=== PATIENT | female | born 1955 | race Caucasian/White ===

== ENCOUNTER → 2017-05-31 10:59 | Outpatient (CLI) | payer OTHER, SELFPAY ==
[2017-05-31 15:59] LABS: T4 Free Direct 1.04 ng/dL (0.76-1.46); Thyroid Stim Hormone (TSH) 4.83 uIU/mL (0.358-3.74)
== END ==
PROVIDERS: Family Provider Family Medicine; PCP Family Medicine; Visit Provider Family Medicine
DX: R53.83 Other fatigue (principal)
CPT/HCPCS: 36415; 84439; 84443

== ENCOUNTER → 2017-06-14 11:22 | Outpatient (CLI) | payer OTHER, SELFPAY ==
--- NOTE | 2017-06-14 11:24 | RAD_ITS ---
STUDY: X-RAY - LUMBOSACRAL SPINE REASON FOR EXAM: Female, 62 years old. Low back pain TECHNIQUE: 7 view(s) of the lumbosacral spine were obtained to include lateral flexion and extension views. COMPARISON: None FINDINGS: Normal lumbar lordosis. There is no substantial scoliosis. There is normal alignment of the vertebrae. There is multilevel endplate spondylosis of the lumbar vertebrae. There is multi-level degenerative disc disease with multi-level disc space narrowing. Normal bilateral sacral ala, sacroiliac joints, and visualized sacrum. Normal visualized soft tissue structures. RAD/L/S Spine Comp/w Bending Views IMPRESSION: Degenerative changes of the spine, as detailed above. No fracture. Electronically Signed: Mikey Godinez DO at 22:22 EDT , Service support ,
== END ==
PROVIDERS: Family Provider Family Medicine; PCP Family Medicine; Visit Provider Orthopaedic Surgery
DX: M54.9 Dorsalgia, unspecified (principal)
CPT/HCPCS: 72114

== ENCOUNTER → 2017-06-27 21:46 | Outpatient (CLI) | payer OTHER, SELFPAY | PROVIDERS: Family Provider Family Medicine; PCP Family Medicine; Visit Provider Family Medicine | DX: G47.10 Hypersomnia, unspecified (principal); R06.83 Snoring; I10 Essential (primary) hypertension; E66.01 Morbid (severe) obesity due to excess calories | CPT/HCPCS: 95810 ==

== ENCOUNTER → 2017-07-25 19:58 | Outpatient (CLI) | payer OTHER, SELFPAY | PROVIDERS: Family Provider Family Medicine; PCP Family Medicine; Visit Provider Family Medicine | DX: G47.33 Obstructive sleep apnea (adult) (pediatric) (principal); E66.01 Morbid (severe) obesity due to excess calories; I10 Essential (primary) hypertension; R06.83 Snoring | CPT/HCPCS: 95811 ==

== ENCOUNTER → 2017-09-14 09:46 | Outpatient (CLI) | payer OTHER, SELFPAY ==
--- NOTE | 2017-09-14 09:55 | RAD_ITS ---
STUDY: AIR-CONTRAST UPPER GI SERIES. REASON FOR EXAM: Female, 62 years old. Dysphagia. FLUOROSCOPY TIME (if supplied): (1:01) minutes/seconds TECHNIQUE: The patient ingested barium. Multiple images of the esophagus, stomach and duodenum were obtained. COMPARISON: None. FINDINGS: The seventh of a small sliding hiatal hernia with gastroesophageal reflux. The patient ingested a 12 mm tablet of barium. The tablet is prepped at the gastroesophageal junction. The remainder of the stomach and duodenum is unremarkable. IMPRESSION: Small sliding hiatal hernia with gastroesophageal reflux. The ingested 12 mm tablet of barium is trapped at the gastroesophageal junction. Electronically Signed: Vivek Cary MD at 8:01 EDT Tel [phone], Service support , STUDY: X-RAY - ESOPHAGUS (BARIUM SWALLOW) WITH FLUOROSCOPY REASON FOR EXAM: Female, 62 years old. Dysphasia. TECHNIQUE: 14 view(s) of the esophagus were obtained following swallowing of barium. FLUOROSCOPY TIME (if supplied): (0:33) minutes/seconds COMPARISON: None. FINDINGS: There is no demonstrated esophageal foreign body. There is no demonstrated stricture or mucosal abnormality. There is a small slight narrowing with gastric esophageal reflux. The patient ingested a 12 mm tablet of barium. The tablet is trapped at the gastroesophageal junction. There is atherosclerotic tortuosity of the aortic arch and descending thoracic aorta. Normal visualized pulmonary parenchyma. Normal visualized osseous structures of the thorax. RAD/Upper GI w/BA Swallow IMPRESSION: Small hiatal hernia with gastroesophageal reflux. The ingested 12 mm tablet of barium is trapped at the gastroesophageal junction. Electronically Signed: Vivek Cary MD at 8:03 EDT Tel [phone], Service support ,
== END ==
PROVIDERS: Family Provider Family Medicine; PCP Family Medicine; Visit Provider Family Medicine
DX: R13.10 Dysphagia, unspecified (principal)
CPT/HCPCS: 74246

== ENCOUNTER → 2017-10-17 16:39 | Outpatient (CLI) | payer OTHER, SELFPAY ==
--- NOTE | 2017-10-17 16:42 | MRI_ITS ---
STUDY: MRI LUMBAR SPINE WITHOUT CONTRAST REASON FOR EXAM: Female, 62 years old. Left leg radiculopathy. TECHNIQUE: Standardized fat and water weighted pulse sequences were obtained in the sagittal and axial planes. COMPARISON: None FINDINGS: T12-L1: Degenerative endplate changes. Narrowed disc space with minimal bulging disc osteophyte complex. Normal bilateral facet joints. Normal central canal and bilateral lateral recesses. Normal bilateral intervertebral neural foramina. Normal lumbar lordosis. There is severe dextro scoliosis. Normal conus medullaris that terminates at T12-L1 L1-2: Degenerative endplate changes. Narrowed disc space and minor endplate spurring. Desiccation of the disc and tiny left paracentral disc protrusion... Normal bilateral facet joints. Normal central canal and bilateral lateral recesses. Normal bilateral intervertebral neural foramina. L2-3: Normal endplates. Normal disc height, desiccation and minor annular bulge.. Normal bilateral facet joints. Normal central canal and bilateral lateral recesses. Normal bilateral intervertebral neural foramina. L3-4: Normal endplates. Normal disc height, desiccation and mild annular bulge with small right posterolateral/foraminal disc protrusion. Mild facet arthropathy.. Normal central canal. Moderate left lateral recess and neural foraminal encroachment with more severe narrowing on the right L4-5: Grade 1 spondylolisthesis. Normal endplates. Normal disc height, desiccation and minor bulging disc osteophyte complex. Bilateral facet arthropathy and thickening of ligamenta flava greater on the right. Normal central canal moderate left lateral recess and mild neuroforaminal encroachment. Severe right lateral recess and moderate neural foraminal stenosis L5-S1: Grade 1 spondylolisthesis Normal endplates. Normal disc height, desiccation and minor bulging disc osteophyte complex with tiny right paracentral disc protrusion. Bilateral facet arthropathy.. Normal central canal. Moderate bilateral recess and mild neural foraminal encroachment Normal visualized sacral ala. Normal visualized paraspinous soft tissue structures. MRI/Spine Lumbar (Routine) IMPRESSION: Severe scoliosis and degenerative changes. Multilevel spinal stenosis secondary to disc disease and bony hypertrophy. Findings as above Electronically Signed: Jeremi Hernandez MD at 21:17 EDT , Service support ,
== END ==
PROVIDERS: Family Provider Family Medicine; PCP Family Medicine; Visit Provider Orthopaedic Surgery
DX: M54.16 Radiculopathy, lumbar region (principal)
CPT/HCPCS: 72148

== ENCOUNTER → 2017-10-25 10:16 | Outpatient (CLI) | payer OTHER, SELFPAY ==
--- NOTE | 2017-10-25 10:17 | RAD_ITS ---
STUDY: X-RAY - PELVIS AND LEFT HIP REASON FOR EXAM: Chronic left hip pain. TECHNIQUE: Radiological exam, hip, unilateral, with pelvis when performed; 2 or 3 views. COMPARISON: None. FINDINGS: There is heterotopic ossification extending distally from the left iliac wing. There is vascular calcification. Normal bilateral iliac wings, sacroiliac joints and visualized sacrum. Normal bilateral superior and inferior pubic rami. There is a calcification in the pubic symphysis. Normal bilateral ischial tuberosities. Normal visualized left femoral head. Normal left acetabulum. There is mild left hip arthrosis with mild joint space narrowing at the superior medial aspect of the joint. RAD/HIP, UNI W/ Pelvis 2-3 Views IMPRESSION: Mild left hip arthrosis. Heterotopic ossification extending distally from the left iliac wing. Electronically Signed: Skyler Livingston MD at 10:16 EDT Tel , Service support ,
== END ==
PROVIDERS: Family Provider Family Medicine; PCP Family Medicine; Visit Provider Orthopaedic Surgery
DX: R52 Pain, unspecified (principal)
CPT/HCPCS: 73502

== ENCOUNTER → 2017-12-05 12:04 | Outpatient (CLI) | payer OTHER, SELFPAY ==
[2017-12-05 15:34] LABS: Absolute Lymphocyte Count 3.38 X10^3/ul (0.83-4.51); Absolute Neutrophil Count 4.4 X10^3/uL (2.0-7.7); Basophil# 0.04 X10^3/uL; Basophil% 0.5 % (0-1); Eosinophil# 0.12 X10^3/uL; Eosinophils% 1.4 % (0-5); Hematocrit 44.7 % (37-47); Lymphocyte # 3.38 X10^3/ul (4.0); Lymphocyte % 38.3 % (19-41); Mean Corp Hgb Conc 33.6 g/gl (32-36); Mean Corpuscular Hgb 28.7 pg (27.0-32.0); Mean Corpuscular Volume 85.5 fL (81-99); Mean Platelet Vol. 9.8 fl (6.2-12.0); Monocyte# 0.87 X10^3/uL; Monocyte% 9.9 % (0-10); Neutrophil # 4.38 X10^3/uL (2.7-7.7); Neutrophil % 49.6 % (47-70); Platelet Count 302 K/mm3 (150-450); RBC Distribution Width CV 14.9 % (11.6-14.6); RBC Distribution Width SD 46.7 fl (35.1-43.9); Red Blood Count 5.23 M/mm3 (4.2-5.4); White Blood Count 8.8 K/mm3 (4.4-11.0)
[2017-12-05 15:35] LABS: POSITIVE COUNT NO; POSITIVE DIFFERENTIAL NO; POSITIVE MORPHOLOGY NO
[2017-12-05 16:00] LABS: ALB/GLOB Ratio 0.9 RATIO (0.9-2.4); AST(SGOT) 24 U/L (15-37); Alanine Aminotransfer ALT/SGPT 51 U/L (13-56); Albumin, Serum 3.5 g/dL (3.2-5.0); Alkaline Phosphatase 53 U/L (45-117); Anion Gap 8 (5-15); BUN 16 mg/dL (7-18); BUN/Creat Ratio 15.7 RATIO (10-20); Calcium,Total 10.2 mg/dL (8.5-10.1); Chloride 105 mmol/L (98-107); Creatinine, Serum 1.02 mg/dL (0.55-1.02); EST Glomerular Filtration Rate 58 mL/min (>60); Est Glom Filt Rate - Afr Amer 70 mL/min (>60); Glucose 109 mg/dL (74-106); Potassium 4.2 mmol/L (3.5-5.1); Protein, Total 7.5 g/dL (6.4-8.2); Sodium Level 141 mmol/L (136-145); T4 Free Direct 0.95 ng/dL (0.76-1.46); Thyroid Stim Hormone (TSH) 2.08 uIU/mL (0.358-3.74)
[2017-12-05 16:02] LABS: Microalbumin,Random Urine 45.3 mg/L (NO RANGE EST.); Microalbumin:Creatinine Ratio 36.2 mg/g CRE (<30 mg/g CRE)
== END ==
PROVIDERS: Family Provider Family Medicine; PCP Family Medicine; Visit Provider Family Medicine
DX: E11.21 Type 2 diabetes mellitus with diabetic nephropathy (principal); I10 Essential (primary) hypertension; E66.01 Morbid (severe) obesity due to excess calories; E78.5 Hyperlipidemia, unspecified; R94.6 Abnormal results of thyroid function studies
CPT/HCPCS: 36415; 80053; 82043; 82570; 84439; 84443; 85025

== ENCOUNTER → 2017-12-14 10:30 | Outpatient (CLI) | payer OTHER, SELFPAY ==
--- NOTE | 2017-12-14 10:33 | EKG12_ITS ---
Test Reason : PREOP Blood Pressure : / mmHG Vent. Rate : 076 BPM Atrial Rate : 076 BPM P-R Int : 156 ms QRS Dur : 086 ms QT Int : 404 ms P-R-T Axes : 040 009 008 degrees QTc Int : 454 ms Normal sinus rhythm Normal ECG Confirmed by RAUL BACA, JEFFERSON ([id number]), videotape editor MORGAN JOHNSON ([id number]) on 12/16/2017 1:33:23 PM Referred By: Yessenia Gonzalez Confirmed By:JEFFERSON CARTER MD
== END ==
PROVIDERS: Family Provider Family Medicine; PCP Family Medicine; Referring Provider Urology; Visit Provider Urology
DX: Z01.810 Encounter for preprocedural cardiovascular examination (principal)
CPT/HCPCS: 93005

== ENCOUNTER 2017-12-27 10:03 | Observation (INO) | payer OTHER, SELFPAY ==
[2017-12-27] VITALS (12 sets, daily range): BP systolic 118–157; BP diastolic 66–93; PULSE 73–99; RESP 16–20; TEMP 36.4–37; O2SAT 89–99; BMI 38.7; BMI 38.6
[2017-12-27 06:41] LABS: Bedside Glucose 175 mg/dL (70-110)
[2017-12-27 07:02] LABS: Hemoglobin A1c 7.2 % (4.2-6.3)
[2017-12-27] MEDS: Cefazolin 2 GM in 0.9% Normal Saline 100 ML IV (08:14)
[2017-12-27] MEDS: Lubricating Jelly 60 GM Tube 30 GM TOPICAL (08:43)
[2017-12-27] MEDS: Methylene Blue 1% 100 MG/10 ML VIAL (09:21)
[2017-12-27] MEDS: Estrogens,Conj. 1 Tube 1 DOSE (09:34)
[2017-12-27 10:06] LABS: Bedside Glucose 149 mg/dL (70-110)
[2017-12-27] MEDS: Morphine 2 MG/ML Syringe IV ×2 (11:45→16:10)
[2017-12-27] MEDS: Dextrose 5%-Lactated Ringers 1,000 ML 100 ML IV ×2 (11:49→22:53)
[2017-12-27 12:26] LABS: Bedside Glucose 113 mg/dL (70-110)
--- NOTE | 2017-12-27 13:07 | PCM.IMDPSTOP ---
Immediate Post-Op Note Date of Procedure: 12/27/17 Primary Surgeon/Physician: Yessenia Gonzalez MD bank runner: Ventura Tse Pre-Operative Diagnosis: rectocele, postmenopausal vaginal atrophy Post-Operative Diagnosis: same Surgery/Procedure Performed:: rectocele repair, cystoscopy Description of Surgical Findings:: 2 layer primary repair without mesh. good apical support. Estimated Blood Loss: 50cc Specimen's removed: none - Admit VTE Documentation VTE Present on Admission: Yes VTE Mechan Device Prophylaxis: SCD's VTE Pharm Prophylaxis ordered?: No Reason prophylaxis not ordered:: Treatment Not Indicated
--- NOTE | 2017-12-27 13:10 | OP.PN_ITS ---
Immediate Post-Op Note Date of Procedure: 12/27/17 Primary Surgeon/Physician: Yessenia Gonzalez MD property maintenance supervisor: Ventura Tse Pre-Operative Diagnosis: rectocele, postmenopausal vaginal atrophy Post-Operative Diagnosis: same Surgery/Procedure Performed:: rectocele repair, cystoscopy Description of Surgical Findings:: 2 layer primary repair without mesh. good apical support. Estimated Blood Loss: 50cc Specimen's removed: none - Admit VTE Documentation VTE Present on Admission: Yes VTE Mechan Device Prophylaxis: SCD's VTE Pharm Prophylaxis ordered?: No Reason prophylaxis not ordered:: Treatment Not Indicated
[2017-12-27] MEDS: Estradiol 1 MG Tablet PO (13:56)
[2017-12-27] MEDS: HYDROcodone Bitartrate/Apap 5/325 Tablet PO ×2 (13:56→21:14)
[2017-12-27] MEDS: Losartan Potassium 25 MG Tablet PO (13:57)
[2017-12-27] MEDS: Meloxicam 15 MG Tablet PO (13:57)
[2017-12-27] MEDS: metFORMIN HCl 1,000 MG Tablet 1000 MG PO (13:58)
[2017-12-27] MEDS: Gabapentin 100 MG Capsule PO ×2 (13:58→18:09)
[2017-12-27] MEDS: Metoprolol Tartrate 100 MG Tablet PO (13:58)
[2017-12-27] MEDS: HYDROCHLOROTHIAZIDE 12.5 MG CAPSULE PO (13:58)
[2017-12-27] MEDS: amLODIPine 10 MG Tablet PO (13:59)
[2017-12-27] MEDS: Pantoprazole Sodium 20 MG Tablet PO (13:59)
[2017-12-27] MEDS: Cefazolin 1 GM/50 ML BAG IV ×2 (15:55→23:36)
[2017-12-27] MEDS: Docusate Sodium 100 MG Capsule PO (21:10)
[2017-12-27] MEDS: Atorvastatin Calcium 20 MG Tablet PO (21:10)
[2017-12-28 03:00] VITALS: BP 133/63; PULSE 76; RESP 18; TEMP 36.6; O2SAT 93
[2017-12-28] MEDS: HYDROcodone Bitartrate/Apap 5/325 Tablet PO (06:24)
--- NOTE | 2017-12-28 07:37 | PCM.PN.GU ---
Physical Exam Subjective: Doing well this morning. Little sore, hasn't walked much but did get out of bed. Ate dinner last night without problem. Per nursing, the norco controlled her pain. - Physical Exam Vital Signs Temp 97.9 F 12/28/17 03:00 Pulse 76 12/28/17 03:00 Resp 18 12/28/17 03:00 BP 133/63 H 12/28/17 03:00 Pulse Ox 93 12/28/17 03:00 Intake & Output 12/26/17 12/27/17 12/28/17 23:59 23:59 23:59 Intake Total 3121 / 3121 1034 / 1034 Output Total 885 / 885 250 / 250 Balance 2236 / 2236 784 / 784 Weight: 98.883 kg Intake: Oral 800 / 800 400 / 400 IV fluid/meds 2321 / 2321 634 / 634 IV #2 1200 / 1200 Output: Urine 885 / 885 250 / 250 General: Alert, Oriented x3, Cooperative, No apparent distress HEENT: Atraumatic, Normocephalic Oral: Dry Mucosa Lungs: Normal air movement, - - still on the O2, used CPAP last night. Abdomen: Soft Extremities: - - SCD's in place bilaterally Skin: No rashes Comment: vaginal packing and catheter removed without an issue. Medical Necessity - Tobacco Use Smoking Status: Never smoker Assessment/Plan All Active Problems (Last Reviewed 06/07/17 @ 10:37 by Farida Cordova) ASCUS with positive high risk HPV (Acute) POD#1 rectocele repair, cystoscopy ambulate tolerating PO home today once off O2.
--- NOTE | 2017-12-28 07:43 | DCINST_ITS ---
Discharge Diet: No Restrictions Discharge Activity: May Not Drive, May Shower, - - no driving for 2 weeks no lifting over 5 pounds no pushing or pulling no vacuuming no sexual activity No tub bathing or swimming, ok to shower Lifting Restrictions: 5 pounds Call your doctor if your incision/area has: Sudden Increased Bleeding Call your doctor if you observe: Fever of 101 or Higher, Inability to urinate, Inability to have a bowel movement, Using more than one pad per hour, Shortness of breath, Chest pain, Calf discomfort, Uncontrolled pain Additional Instructions: take colace over the counter twice a day, the generic is ok (docusate sodium). if not enough, add miralax too, follow instructions on bottle. Allergies/Adverse Reactions: Allergies lisinopril Allergy (Mild, Verified 12/20/17 13:07) Unknown Medications to take at Discharge Glimepiride [Amaryl] 4 mg PO DAILY 07/21/15 Hydrochlorothiazide 12.5 mg PO DAILY 07/21/15 Metformin HCl [Glucophage] 1,000 mg PO BIDCM 07/21/15 Metoprolol Tartrate [Lopressor (Beta Odilia)] 100 mg PO DAILY 07/21/15 Simvastatin [Zocor] 40 mg PO QHS 07/21/15 gabapentin 100 mg capsule 100 mg PO TID cap 03/02/17 cyclobenzaprine 10 mg tablet 10 mg PO Q8H 06/01/17 estradiol 1 mg tablet 1 mg PO QDAY 06/01/17 losartan 25 mg tablet 25 mg PO QDAY 06/01/17 meloxicam 15 mg tablet 15 mg PO QDAY 06/01/17 Amlodipine [Norvasc] 10 mg PO DAILY 12/20/17 Mirabegron [Myrbetriq] 25 mg PO DAILY 12/20/17 Nitrofurantoin Macrocrystals [Macrobid] 100 mg PO DAILY 12/20/17 Omeprazole [Prilosec] 20 mg PO DAILY 12/20/17 Trospium Chloride [Sanctura Xr] 60 mg PO QAM 12/20/17 Primary Care Physician: Junior Eaton DO [Primary Care Provider] - Test Results: Test results from this visit will be discussed in further detail at your follow- up appointment, if applicable. Please Follow Up With: Ysesenia Gonzalez MD When: 2 weeks
[2017-12-28 07:45] VITALS: BP 109/65; PULSE 74; RESP 14; TEMP 36.9; O2SAT 92
[2017-12-28] MEDS: Meloxicam 15 MG Tablet PO (10:07)
[2017-12-28] MEDS: Mirabegron 25 MG TAB.ER.24H PO (10:07)
[2017-12-28] MEDS: Pantoprazole Sodium 20 MG Tablet PO (10:07)
[2017-12-28] MEDS: amLODIPine 10 MG Tablet PO (10:07)
[2017-12-28] MEDS: Gabapentin 100 MG Capsule PO ×3 (10:07→17:36)
[2017-12-28] MEDS: Glimepiride 4 MG Tablet PO (10:07)
[2017-12-28] MEDS: Docusate Sodium 100 MG Capsule PO (10:07)
[2017-12-28 10:08] VITALS: PULSE 69
[2017-12-28] MEDS: HYDROCHLOROTHIAZIDE 12.5 MG CAPSULE PO (10:08)
[2017-12-28] MEDS: Estradiol 1 MG Tablet PO (10:08)
[2017-12-28] MEDS: metFORMIN HCl 1,000 MG Tablet 1000 MG PO ×2 (10:08→17:37)
[2017-12-28] MEDS: Losartan Potassium 25 MG Tablet PO (10:08)
[2017-12-28] MEDS: Metoprolol Tartrate 100 MG Tablet PO (10:08)
--- NOTE | 2017-12-28 10:30 | PCA ---
PT WALKED FROM HER ROOM 213 TO ROOM 211 AND BACK. PT HELD ONTO RAILING THE WHOLE WAY
[2017-12-28 13:00] VITALS: BP 152/72; PULSE 73; RESP 16; TEMP 37; O2SAT 93
[2017-12-28 17:20] VITALS: BP 137/72; PULSE 87; RESP 14; TEMP 36.6; O2SAT 92
--- NOTE | 2017-12-29 18:02 | PCM.OPRPT ---
Problem List (1) Rectocele Status: Acute (2) Post-menopause atrophic vaginitis Status: Acute Report of Operation Date of Procedure: 12/27/17 Pre-Operative Diagnosis: rectocele, postmenopausal vaginal atrophy Post-Operative Diagnosis: same Surgery/Procedure Performed:: rectocele repair, cystoscopy Description of Surgical Findings:: 2 layer primary repair without mesh. good apical support. polo coach: Ventura Tse Specimen's removed: none Estimated Blood Loss (mL): 50cc Description of Procedure: Patient is a 62-year-old female sent to mo for evaluation and treatment of a rectocele and splinting in order to have bowel movements. She subsequently underwent urodynamics and cystoscopy in the office prior to being consented for surgical intervention. All risks benefits and alternatives were discussed including the risk of anesthesia, infection, bleeding, injury and pain. She understood and agreed to proceed. The patient was taken to the operating room and placed on the operating room table. Anesthesia monitored the head neck area IV access and vital signs throughout the case. Once anesthesia was appropriately administered the patient was placed into the exaggerated dorsal lithotomy position was prepped and draped in usual sterile fashion. At this time a Mary catheter was inserted into the urethra and the urinary bladder was drained. The posterior vaginal wall was identified and submucosally injection with 1% lidocaine with epinephrine was undertaken. An incision was made in the vaginal mucosa and dissection in full-thickness fashion was then undertaken until the entire defect of the rectocele was delineated. At this time, the decision was made to continue the repair without insertion of mesh as the vault defect was not significant. The rectocele was closed with 2-0 Vicryl in a 2 layer closure bringing the rectovaginal fascia together. At this time the vaginal mucosa was closed over the repair with running interlocking 2-0 Vicryl suture. The patient had been given methylene blue, and a cystoscopy was then performed revealing bilateral ureteral jets. The Mary catheter was reinserted. The vagina was packed with estrogen cream and vaginal packing. The patient was awakened and taken to the recovery room in good condition. There were no complications during this procedure. - Complications none - Admit VTE Documentation VTE Present on Admission: Yes VTE Mechan Device Prophylaxis: SCD's VTE Pharm Prophylaxis ordered?: No Reason prophylaxis not ordered:: Treatment Not Indicated
--- NOTE | 2017-12-29 18:06 | OP.PCM_ITS ---
Problem List (1) Rectocele Status: Acute (2) Post-menopause atrophic vaginitis Status: Acute Report of Operation Date of Procedure: 12/27/17 Pre-Operative Diagnosis: rectocele, postmenopausal vaginal atrophy Post-Operative Diagnosis: same Surgery/Procedure Performed:: rectocele repair, cystoscopy Description of Surgical Findings:: 2 layer primary repair without mesh. good apical support. medical administrative specialist: Ventura Tse Specimen's removed: none Estimated Blood Loss (mL): 50cc Description of Procedure: Patient is a 62-year-old female sent to tx for evaluation and treatment of a rectocele and splinting in order to have bowel movements. She subsequently underwent urodynamics and cystoscopy in the office prior to being consented for surgical intervention. All risks benefits and alternatives were discussed including the risk of anesthesia, infection, bleeding, injury and pain. She understood and agreed to proceed. The patient was taken to the operating room and placed on the operating room table. Anesthesia monitored the head neck area IV access and vital signs throughout the case. Once anesthesia was appropriately administered the patient was placed into the exaggerated dorsal lithotomy position was prepped and draped in usual sterile fashion. At this time a Mary catheter was inserted into the urethra and the urinary bladder was drained. The posterior vaginal wall was identified and submucosally injection with 1% lidocaine with epinephrine was undertaken. An incision was made in the vaginal mucosa and dissection in full- thickness fashion was then undertaken until the entire defect of the rectocele was delineated. At this time, the decision was made to continue the repair without insertion of mesh as the vault defect was not significant. The rectocele was closed with 2-0 Vicryl in a 2 layer closure bringing the rectovaginal fascia together. At this time the vaginal mucosa was closed over the repair with running interlocking 2-0 Vicryl suture. The patient had been given methylene blue, and a cystoscopy was then performed revealing bilateral ureteral jets. The Mary catheter was reinserted. The vagina was packed with estrogen cream and vaginal packing. The patient was awakened and taken to the recovery room in good condition. There were no complications during this procedure. - Complications none - Admit VTE Documentation VTE Present on Admission: Yes VTE Mechan Device Prophylaxis: SCD's VTE Pharm Prophylaxis ordered?: No Reason prophylaxis not ordered:: Treatment Not Indicated
== END 2017-12-28 18:54 | disposition home or self-care (01) ==
LOC: MS2 12-28 06:55
PROVIDERS: Anesthesiology; Admitting Provider Urology; Family Provider Family Medicine; PCP Family Medicine; Referring Provider Urology; Visit Provider Urology
PROC: (CPT 57260; principal; 2017-12-27 07:15)
DX: N81.6 Rectocele (principal); E11.9 Type 2 diabetes mellitus without complications; N95.2 Postmenopausal atrophic vaginitis; G47.30 Sleep apnea, unspecified; Z79.899 Other long term (current) drug therapy; Z79.84 Long term (current) use of oral hypoglycemic drugs; G89.29 Other chronic pain; M54.5 Low back pain; I10 Essential (primary) hypertension; N39.41 Urge incontinence
CPT/HCPCS: 57250; 36415; 82962; 83036; 96361; 96365; 96366; 96375; 96376; 99218; J7120; G0378; G0379; J2405

== ENCOUNTER → 2018-05-08 10:15 | Outpatient (CLI) | payer OTHER, SELFPAY ==
--- NOTE | 2018-05-08 10:18 | MRI_ITS ---
STUDY: MRI LEFT HIP REASON FOR EXAM: Left hip pain, especially with walking. TECHNIQUE: Standardized fat and water weighted pulse sequences were obtained in all 3 orthogonal planes. COMPARISON: Radiographs 10/25/2017. FINDINGS: There is mild chondral thinning of the left hip (T2 sagittal image 11). There is focal synovitis at the posterior aspect of the left hip measuring approximately 3.2 cm in length (proton-density sagittal images 11-14; T2 sagittal images 8-12) with bone edema of the adjacent posterior acetabulum (inversion recovery axial images 21, 22) without demonstrated osseous erosion. There is a small tear of the left superior labrum (inversion recovery coronal image 17). Normal femoral head. Normal femoral neck and intratrochanteric region. Normal gluteus minimus, medius and iliopsoas tendons and distal insertions. There is no trochanteric, iliopsoas or iliopectineal bursitis. Normal superior and inferior pubic rami. Normal pubic symphysis. Normal ischial tuberosity. Normal origin of the hamstring tendons. Normal visualized iliac wing, sacroiliac joint, and sacral ala. There is no enlargement or edema of the left piriformis muscle (inversion recovery coronal images 8, 9). MRI/Lower Ext Joint Only (Routine) IMPRESSION: Focal synovitis at the posterior aspect of the left hip suggestive of inflammatory arthritis, with bone edema of the adjacent posterior acetabulum. Mild left hip arthrosis. Small tear of the left superior labrum. No demonstrated enlargement or edema of the left piriformis muscle. Electronically Signed: Skyler Livingston MD at 10:50 EST Tel , Service support ,
== END ==
PROVIDERS: Family Provider Family Medicine; PCP Family Medicine; Referring Provider Physician Assistant; Visit Provider Physician Assistant
DX: M25.552 Pain in left hip (principal); G57.02 Lesion of sciatic nerve, left lower limb
CPT/HCPCS: 73721

== ENCOUNTER → 2018-08-28 10:21 | Outpatient (CLI) | payer OTHER, SELFPAY ==
[2018-08-28 10:25] LABS: Mucous, Urine 0 SEEN /hpf (<or=2+)
[2018-08-28 13:02] LABS: Microalbumin,Random Urine 50.1 mg/L (NO RANGE EST.); Microalbumin:Creatinine Ratio 28.5 mg/g CRE (<30 mg/g CRE)
[2018-08-28 13:03] LABS: Color, Urine Yellow (Yellow); Glucose, Dipstick Normal (Normal); Ketone-Dipstick Negative (Negative); Leukocyte Esterase-Dipstick 500 /ul (Negative); Nitrite-Dipstick Negative (Negative); Occult Blood-Urine 10 /ul (Negative); Protein-Dipstick 15 mg/dl (Negative); Specific Gravity, Urine 1.025 (1.002-1.030); Urine Bilirubin Dipstick Negative (Negative); Urine Clarity Cloudy (Clear); Urine Urobilinogen Normal (Normal)
[2018-08-28 13:12] LABS: AST(SGOT) 20 U/L (15-37); Alanine Aminotransfer ALT/SGPT 40 U/L (13-56); Albumin, Serum 3.9 g/dL (3.2-5.0); Alkaline Phosphatase 59 U/L (45-117); Anion Gap 8 (5-15); BUN 18 mg/dL (7-18); BUN/Creat Ratio 18.1 RATIO (10-20); Calcium,Total 9.2 mg/dL (8.5-10.1); Chloride 107 mmol/L (98-107); Cholesterol 129 mg/dL (200); EST Glomerular Filtration Rate 60 mL/min (>60); Est Glom Filt Rate - Afr Amer 72 mL/min (>60); Globulin 3.9 g/dL (2.2-4.2); Glucose 102 mg/dL (74-106); High Density Lipoprotein 31 mg/dL; Protein, Total 7.8 g/dL (6.4-8.2); Sodium Level 141 mmol/L (136-145); Triglycerides 176 mg/dL; Very Low Density Lipoprotein 35 mg/dL (5-40)
[2018-08-28 13:15] LABS: Red Blood Cells-Urine 0-5 SEEN /hpf (0-5); White Blood Cells 10-25 SEEN /hpf (0-5)
[2018-08-28 13:16] LABS: Bacteria 1+ /hpf (None Seen); Squamous Epithelial Cells - UA 0-5 SEEN /hpf (5-10)
== END ==
PROVIDERS: Family Provider Family Medicine; PCP Family Medicine; Visit Provider Family Medicine
DX: E11.21 Type 2 diabetes mellitus with diabetic nephropathy (principal); E78.5 Hyperlipidemia, unspecified; R94.6 Abnormal results of thyroid function studies; N39.41 Urge incontinence; R30.9 Painful micturition, unspecified; N30.90 Cystitis, unspecified without hematuria
CPT/HCPCS: 36415; 80053; 80061; 81001; 82043; 82570; 84443; 87086; 87088

== ENCOUNTER → 2019-04-04 11:50 | Outpatient (CLI) | payer OTHER, SELFPAY ==
[2017-12-27 11:36] VITALS: BMI 38.6
[2019-04-04 16:22] LABS: LDH 185 U/L (84-246)
[2019-04-06 09:35] LABS: HCG BETA-SUBUNIT QUANT. 4 mIU/mL (.)
[2019-04-10 16:41] LABS: AFP, Tumor Marker 3.7 ng/mL (0.0-8.3); Acetylcholine Receptor Binding < 0.03 nmol/L (0.00-0.24)
== END ==
PROVIDERS: Family Provider Family Medicine; PCP Family Medicine; Visit Provider Family Medicine
DX: J98.59 Other diseases of mediastinum, not elsewhere classified (principal)
CPT/HCPCS: 36415; 82105; 83615; 84238; 84702

== ENCOUNTER → 2019-04-16 11:14 | Outpatient (CLI) | payer OTHER, SELFPAY ==
--- NOTE | 2019-04-16 12:00 | PET_ITS ---
EXAMINATION: FDG PET CT INDICATIONS: A 64-year-old female with history of mediastinal mass formation. COMPARISON EXAMINATION: None available. TECHNIQUE: Following the intravenous administration of 17.07 mCi of F-18 deoxyglucose via the right antecubital fossa, multiplanar image acquisitions of the head, neck, chest, abdomen and pelvis to level of mid thigh, obtained at one hour post radiopharmaceutical administration contemporaneously interpreted with the current CT of the head, neck, chest, abdomen and pelvis to level of mid thigh, dated 04/16/19 via coregistration reveal: SERUM GLUCOSE LEVEL: 178 mg/dl. HEIGHT: 63 inches. WEIGHT: 217 lbs. FINDINGS: 1. There is no quantitative scintigraphic evidence of abnormal increased glucose metabolism on meticulous inspection of whole body acquisitions to include all three axis reconstructions. 2. Normal physiologic distribution of the radiopharmaceutical is apparent in the hepatic and splenic parenchyma, both renal units, bladder and visualized intestinal tract. There is uniform distribution of the radiopharmaceutical concentration defined in the visualized cerebellar hemispheres and cerebral cortical structures.? Diffuse intestinal tract activity is noted throughout all four quadrants of the abdominal-pelvic retroperitoneum, mesentery consistent with normal physiologic distribution of the radiopharmaceutical extending to the level of the rectum-rectal vault. Pertinent CT findings are as follows. CHEST: Middle and anterior mediastinal soft tissue densities demonstrate no evidence of facilitated FDG uptake. Right-left axillary soft tissue with fatty hilus is ametabolic. There are no parenchymal densities-nodules defined in the right and left hemithorax demonstrating discernible, quantitatively significant increased glucose metabolism. Atherosclerotic calcification is defined in the thoracic aorta without evidence of dilatation, aneurysm formation. Coronary arterial calcification is observed. ABDOMEN AND PELVIS: There is fatty metamorphosis involving the hepatic parenchyma. Atherosclerotic calcification is defined in the abdominal aorta without evidence of dilatation, aneurysm formation. Pelvic arterial calcification is observed. The uterus appears surgically absent. Bilateral inguinal soft tissue with fatty hilus is non-glucose avid. SKELETAL: Degenerative changes defined in the cervical, thoracic and lumbar spine demonstrate no evidence for glucose hypermetabolism. PET/PET/CT Tumor Base -Thigh Init IMPRESSION: 1. NEGATIVE EXAMINATION. There is no definitive quantitative scintigraphic evidence of viable neoplasm. 2. Meticulous attention paid to the mediastinum demonstrates no evidence of quantitatively significant enhanced FDG distribution on the present evaluation. Electronic Signature Marcos Hay D.O. Electronically Signed: Marcos Hay DO at 23:21 EST Tel , Service support ,
== END ==
PROVIDERS: PCP Family Medicine; Referring Provider Family Medicine; Visit Provider Family Medicine
DX: J98.59 Other diseases of mediastinum, not elsewhere classified (principal); D48.7 Neoplasm of uncertain behavior of other specified sites
CPT/HCPCS: 78815; A9552

== ENCOUNTER 2020-09-24 06:49 | Day surgery (SDC) | payer MEDICARE, BC, SELFPAY ==
--- NOTE | 2020-09-23 15:57 | PCM.HP.BLA ---
History and Physical Date of Admission: 09/24/20 Fifi Wang 1955 ? REFERRING PHYSICIAN: Junior Eaton, DO CHIEF COMPLAINT: Consult (Colonoscopy) ? HPI: The patient is a 65 year old female presents for consideration of colonoscopy for history of colon polyps. She had colonoscopy with me in 2015 with findings of serrated adenoma (mixed tubular adenoma and hyperplastic polyp), 1 cm, on 07/21/2015. She complains of lower abdominal pain, has chronic UTIs followed by Dr. Gonzalez for this She has sleep apnea and uses CPAP She denies constipation She also notes fecal urgency, usually in the morning with about 4 bowel movements then is OK for rest of day. She also notes abdominal bloating She denies blood in stools ? PAST MEDICAL HISTORY ? Abdominal pain, left lower quadrant 08/18/2010 ? Arthritis ? ? Diabetic ? ? Hx of colonoscopy 07/21/2015 ? Hyperlipidemia ? ? Hypertension ? ? Urinary tract infection ? PAST SURGICAL HISTORY ? COLONOSCOP W/ OR W/O BRSH SPEC ? 02/14/07 ? no polyps ? COLONOSCOP W/ OR W/O BRS SPEC ? 10/16/2010 ? Colonoscopy, repeat 5 yrs ? OTHER ? ? ? RSO & appy - benign path ? TOTAL ABDOM HYSTERECTOMY ? 1984 ? Hysterectomy, ANGUS ovaries gone ? TOTAL KNEE REPLACEMENT ? 2003 ? Knee replacement, total(right) - Dr. Waterman rectocoele repair Left hip surgery ? Current Outpatient Medications ? estrogens, conjugated (PREMARIN VAGINAL) Use vaginally. ? vibegron (GEMTESA) 75 mg tablet Take 75 mg by mouth once daily. ? amLODIPine (NORVASC) 10 mg tablet Take 10 mg by mouth once daily. ? losartan (COZAAR) 25 mg tablet Take 25 mg by mouth once daily. ? simvastatin (ZOCOR) 40 mg tablet Take 40 mg by mouth once daily. ? NOVOLIN N NPH U-100 INSULIN 100 unit/mL injection INJECT 10 UNITS SUBCUTANEOUSLY ONCE DAILY BEFORE FIRST MEAL ? metoprolol tartrate, short acting, (LOPRESSOR) 100 mg tablet Take 1 tablet by mouth once daily. ? metFORMIN (GLUCOPHAGE) 500 mg tablet Take 2 tablets by mouth twice daily. ? Hydrochlorothiazide 12.5 mg capsule Take 1 capsule by mouth once daily. ? glimepiride (AMARYL) 2 mg tablet Take 1 tablet by mouth daily with breakfast. (Patient taking differently: Take 2 mg by mouth daily with breakfast. 2 Tablets, Once a Day ? blood sugar diagnostic (SentreHEARTTOUCH ULTRA TEST) test strip Test blood sugar(s) 1-2 times daily. Dx: 250.02. Insulin: No ? Lancets (ONE TOUCH DELICA) lancets Test blood sugar(s) once daily. Dx: 250.02. Insulin: No ? COMPOUNDED PRESCRIPTION Hgb A1c ? CALCIUM CARBONATE/VITAMIN D3 (CALCIUM WITH VITAMIN D ORAL) Take by mouth. ? peg 3350-electrolytes (COLYTE) 240-22.72-6.72 -5.84 gram solution Take 4,000 mL by mouth one time only for 1 dose. ? pantoprazole DR (PROTONIX) 40 mg tablet TAKE 1 TABLET BY MOUTH 30 MINUTES BEFORE BREAKFAST (Patient not taking: Reported on 08/04/2020) ? atorvastatin (LIPITOR) 40 mg tablet Take 1 tablet by mouth once daily. (Patient not taking: Reported on 08/04/2020 ) ? lisinopril (PRINIVIL) 40 mg tablet Take 1 tablet by mouth twice daily. (Patient not taking: Reported on 08/04/2020 ) ? omega-3 fatty acids (FISH OIL CONCENTRATE) 1,000 mg cap Take 2 capsules by mouth once daily. (Patient not taking: Reported on 08/04/2020 ? gabapentin (NEURONTIN) 100 mg capsule Take 100 mg by mouth three times daily. (Patient not taking: Reported on 08/04/2020) ? pioglitazone (ACTOS) 30 mg tablet Take 1 tablet by mouth once daily. (Patient not taking: Reported on 08/04/2020 ? COMPOUNDED PRESCRIPTION Esophagram- DX: dysphagia, 782.20, Fax results to Lou Johnson [phone] ? meloxicam (MOBIC) 15 mg tablet Take 1 tablet by mouth once daily. Take with food. (Patient not taking: Reported on 08/04/2020 ? Trospium 60 mg cp24 Take 1 capsule by mouth once daily. (Patient not taking: Reported on 08/04/2020 ? ALLERGIES: Lisinopril ? PERSONAL HISTORY: ? Smoking status: Never Smoker ? Smokeless tobacco: Never Usedubstance Use Topics ? Alcohol use: No ? Drug use: No FAMILY HISTORY ? Diabetes Mother ? ? other (Other) Mother ? Tumor on brain stem ? Hypertension Father ? ? Diabetes Father ? ? Cataract Father ? ? Asthma Father ? ? dx in his 50's. 80 years old in 2010. ? Glaucoma Maternal Grandmother ? ? Asthma Sister ? ? other (Tumors) Sister ? ? unsure what it is ? REVIEW OF SYSTEMS: General: The patient NOTES fatigue, denies weight loss, NOTES weight gain, denies feeling hot, and denies feelings of cold. Eyes: The patient denies glaucoma, denies eye injury/surgery, wears glasses or contacts. Ear/Nose/Throat: The patient denies allergies, denies hayfever, denies ear infections, and denies bloody noses. Cardiovascular: The patient denies chest pain, denies heart disease, NOTES high blood pressure,denies cardiac stent, denies prior heart attack, denies irregular heart beat, NOTES high cholesterol, denies poor circulation, denies heart failure, other cardiac issues, denies claudication, denies cold feet, denies peripheral arterial stent. Respiratory: The patient denies tuberculosis, denies pneumonia, denies frequent cough, denies pulmonary embolism, denies shortness of breath, and denies coughing up blood. Gastrointestinal: The patient denies difficulty swallowing, denies acid reflux, denies ulcers, denies vomiting, denies jaundice/hepatitis, denies gallbladder problems, denies black or tarry stools, denies hemorrhoids, denies bleeding from rectum, denies diverticulitis, denies constipation, denies diarrhea, denies loss of stool control, and denies hernias. Kidney/Bladder: The patient denies kidney stones, NOTES urine infections, and denies bloody urine. Skin: The patient denies a history of skin cancer, denies bleeding/changing moles, and denies a history of skin rash. Neurologic: The patient denies a history of epilepsy/convulsions, denies headaches, denies head/spinal injuries, and denies stroke/TIA. Psychiatric: The patient denies psychiatric medications, denies depression, and denies voices, denies substance abuse. Endocrine: The patient denies thyroid disorders, NOTES diabetes, and denies hormonal problems. Hematologic: The patient denies a history of bruising, denies bleeding, and denies anemia, denies blood clots. Infections: The patient denies a history of measles and mumps, denies rheumatic fever, and denies sexually transmitted diseases. Musculoskeletal: The patient denies back pain/injury, denies back problems, denies sciatica, denies knee/foot trouble, NOTES arthritis, or denies gout. When was patient's last Mammogram screening? Unknown Last Colonoscopy: 2015 Sheila Schroeder LPN ?? PHYSICAL EXAMINATION: General: The patient is 65 year old female, well nourished, well hydrated in no acute distress. The patient is oriented to time, place, and person. VITALS: Blood pressure 156/82, pulse 103, temperature 36.6 ?C (97.9 ?F), height 152.4 cm (5'), weight 101.6 kg (224 lb), SpO2 94 %. Body mass index is 43.75 kg/m?. Head ? Normocephalic. EOM intact with sclera clear and no icterus noted. Neck - supple with no jugular venous distention noted. Trachea is midline. Lungs ? clear to auscultation. Normal breath sounds. No rales/rhonchi/wheezing noted. No labored breathing noted, such as retractions. No cough heard. Heart ? normal S1 and S2 auscultated. No rubs/clicks/murmurs noted. Regular rate. Abdomen ? soft and benign. Normal bowel sounds. . Difficult to determine if any masses or organomegaly due to body habitus. Extremities ? no pitting edema noted. Skin ? normal skin integrity. Neurological ? walks with assistance of cane, no focal deficits noted. Psych ? calm and appropriate ? IMPRESSION: history of colon polyps ? PLAN: I have discussed the above with the patient. I have offered colonoscopy, possible biopsies I have explained the procedure to the patient. I have counseled the patient as to the risks of the procedure, including but not limited to: infection, bleeding, injury to any intrabdominal organs such as liver/spleen, perforation of the GI tract, inability to complete the procedure, complications of anesthesia, etc. ? the patient understands. ? The patient was offered a surgery/procedure. The provider and patient have discussed in detail the risk of exposure to and/or potential harm posed by the COVID-19 virus with having a surgery/procedure at this time versus the risk of? delaying the surgery/procedure. It is not possible to know either the risk of delaying the surgery or procedure or chance of getting an infection with perfect accuracy, but a joint decision was made between the patient and the provider ?to proceed at this time with the scheduled surgery/procedure. I have answered all questions to the patient?s satisfaction and the patient has no further questions. ? Diagnoses: (Z86.010) History of colonic polyps (primary encounter diagnosis) Return to Clinic: The patient is instructed to follow-up with me as above. ? ? ? Maame Craven MD
--- NOTE | 2020-09-24 | COLBX_PTH ---
PATIENT: GEOFF FELIPE LOC: EN U#:[id number] AGE/SX: 65/F ROOM: RE09/24/[address]: Dr. Maame Craven MD : 1955 BED: DIS: 09/24/2020 SPEC #: [id number] RECD: 09/24/20 10:25 STATUS: CULLEN REGALADO #: [id number] RUDY: 09/24/20 00:[address]: Maame Craven DEPT: SURGICAL PATHOLOGY RECD BY: Vinh Baker ENTERED: 09/24/20 10:25 SP TYPE: COLON BX OTHR DR: Dr. Jeremi Garrison MD Tissues: Cecum, NOS Procedures: Surgery Specimen Level IV HEADER OPERATION: Colonoscopy (MAC) PRE-OP DIAGNOSIS: History colon polyps TISSUE SUBMITTED: Cecum polyp x2 by hot snare and biopsy MICROSCOPIC DIAGNOSIS Cecal polyps, biopsy: Tubular adenoma. Fragments of hyperplastic polyp. AM:annetta 09/25/2020 MICROSCOPIC DESCRIPTION Slides are reviewed. GROSS DESCRIPTION Received in fixative is one container labeled with the patient's name and designated cecal polyp. The specimen consists of multiple irregular fragments of light kimbrough soft tissue that in aggregate measure 2.5 x 0.6 x 0.1 cm. The specimen is totally submitted in one cassette. / AM:annetta 09/24/20 TC:5 CPT: 54357
[2020-09-24 07:16] VITALS: BP 134/81; PULSE 69; RESP 16; TEMP 36.6; O2SAT 94; BMI 42.6
[2020-09-24 07:16] LABS: Bedside Glucose 186 mg/dL (70-110)
[2020-09-24] MEDS: Lactated Ringers 1,000 ML 100 ML IV (07:32)
[2020-09-24 08:51] VITALS: BP 112/55; BP 134/81; PULSE 75; RESP 16; TEMP 36.3; O2SAT 95
--- NOTE | 2020-09-24 08:53 | OP.CCLET_ITS ---
09/24/2020 Junior Eaton [address] [facility] [place] [address] Re : Colonoscopy procedure for Fifi Wang Dear Dr. Eaton This procedure was performed on Thursday, September 24, 2020. My impressions and recommendations are as follows: Impressions : - Two 3 to 10 mm polyps in the cecum, removed with a hot snare. Resected and retrieved. - Diverticulosis in the sigmoid colon. - Non-bleeding internal hemorrhoids, prominent anal papillae. Recommendations : - Repeat colonoscopy date to be determined after pending pathology results are reviewed for surveillance. - Return to primary care physician PRN. - Follow up visit via telemedicine/televisit with Sariah Patel PA-C to discuss results. Call to set this up, thank you - Continue present medications. My findings are described in the full procedure note, which is enclosed. If I can be of further assistance, please feel free to contact me at Doctor phone number(s): , Work: . Sincerely, MD Maame Jamison MD 09/24/2020 8:52:27 AM This report has been signed electronically.
--- NOTE | 2020-09-24 08:53 | OP.COLON_ITS ---
Patient Name: Fifi Wang Procedure Date: 09/24/2020 8:01 AM Date of : 1955 Age: 65 Procedure: Colonoscopy Indications: High risk colon cancer surveillance: Personal history of colonic polyps Providers: Maame Craven MD Medicines: See the Anesthesia note for documentation of the administered medications Patient Profile: Refer to note in patient chart for documentation of history and physical. Last Colonoscopy: 2015. Complications: No immediate complications. Procedure: Pre-Anesthesia Assessment: - see anesthesia note After I obtained informed consent, the scope was passed under direct vision. Throughout the procedure, the patient's blood pressure, pulse, and oxygen saturations were monitored continuously. The Colonoscope was introduced through the anus and advanced to the cecum, identified by the appendiceal orifice, ileocecal valve and palpation. The colonoscopy was performed without difficulty. The patient tolerated the procedure well. The quality of the bowel preparation was poor, there was still retained fecal material. Therefore lavage and aspiration was done to clear the fecal material. This took some time. The hamm were cleared adequately. Scope In: 8:09:38 AM Scope Withdrawal Time 0 hours 20 minutes 38 seconds Scope Out: 8:47:35 AM Total Procedure Duration Time 0 hours 37 minutes 57 seconds Findings: The perianal and digital rectal examinations were normal. Two sessile polyps were found in the cecum. The polyps were 3 to 10 mm in size. These polyps were removed with a hot snare. Resection and retrieval were complete. Verification of patient identification for the specimen was done by the nurse. Estimated blood loss was minimal. Multiple small-mouthed diverticula were found in the sigmoid colon. Non-bleeding internal hemorrhoids were found. Impression: - Two 3 to 10 mm polyps in the cecum, removed with a hot snare. Resected and retrieved. - Diverticulosis in the sigmoid colon. - Non-bleeding internal hemorrhoids, prominent anal papillae. Recommendation: - Repeat colonoscopy date to be determined after pending pathology results are reviewed for surveillance. - Return to primary care physician PRN. - Follow up visit via telemedicine/televisit with Sariah Patel PA-C to discuss results. Call to set this up, thank you - Continue present medications. Procedure Code(s): --- Professional --- 77619, Colonoscopy, flexible; with removal of tumor(s), polyp(s), or other lesion(s) by snare technique Diagnosis Code(s): --- Professional --- Z86.010, Personal history of colonic polyps D12.0, Benign neoplasm of cecum K64.8, Other hemorrhoids K57.30, Diverticulosis of large intestine without perforation or abscess without bleeding CPT copyright 2017 [employer]. All rights reserved. The codes documented in this report are preliminary and upon seconds handler review may be revised to meet current compliance requirements. MD Maame Jamison MD 09/24/2020 8:52:27 AM This report has been signed electronically. Number of Addenda: 0 Note Initiated On: 09/24/2020 8:01 AM
[2020-09-24 08:55] VITALS: BP 103/60; BP 134/81; PULSE 76; RESP 16; O2SAT 93
[2020-09-24 09:00] VITALS: BP 120/60; BP 134/81; PULSE 76; RESP 16; O2SAT 93
[2020-09-24 09:05] VITALS: BP 125/75; BP 134/81; PULSE 74; RESP 16; TEMP 36.9; O2SAT 94
[2020-09-24 09:30] VITALS: BP 134/81
== END 2020-09-24 09:34 | disposition home or self-care (01) ==
LOC: EN 06:53 → AC 06:55
PROVIDERS: PCP Family Medicine; Referring Provider Family Medicine; Visit Provider Surgery
PROC: 0DJD8ZZ Inspection of Lower Intestinal Tract, Via Natural or Artificial Opening Endoscopic (ICD-10-PCS; CPT 45378; principal; 2020-09-24 07:55)
DX: Z12.11 Encounter for screening for malignant neoplasm of colon (principal); G47.30 Sleep apnea, unspecified; M19.90 Unspecified osteoarthritis, unspecified site; I10 Essential (primary) hypertension; E78.5 Hyperlipidemia, unspecified; E11.9 Type 2 diabetes mellitus without complications; Z87.19 Personal history of other diseases of the digestive system; Z79.899 Other long term (current) drug therapy; Z79.4 Long term (current) use of insulin; K57.30 Diverticulosis of large intestine without perforation or abscess without bleeding; K64.8 Other hemorrhoids; D12.0 Benign neoplasm of cecum; R15.2 Fecal urgency
CPT/HCPCS: 45385; 82962; 88305; J7050; J7120; J2405

== ENCOUNTER 2020-10-21 08:03 | Day surgery (SDC) | payer MEDICARE, BC, SELFPAY ==
[2020-10-21] VITALS (11 sets, daily range): BP systolic 121–142; BP diastolic 61–84; PULSE 81–89; RESP 16–18; TEMP 36.4–37.3; O2SAT 90–98; BMI 43.4
--- NOTE | 2020-10-21 | IMM_PTH ---
PATIENT: GEOFF FELIPE LOC: [facility] [place] U#:[id number] AGE/SX: 65/F ROOM: RE10/21/[address]: Dr. Yessenia Gonzalez MD : 1955 BED: DIS: 10/21/2020 SPEC #: [id number] RECD: 10/23/20 12:10 STATUS: CULLEN REQ #: [id number] RUDY: 10/21/20 00:[address]: Yessenia Gonzalez DEPT: IMMUNOHISTOCHEMISTRY RECD BY: Natalie Rocha ENTERED: 10/23/20 12:12 SP TYPE: IMMUNO OTHR DR: Dr. Jeremi Garrison MD Tissues: B - Vulva, NOS Procedures: p16 (initial) KI-67 (add) P53 (add) P40 (add) PHYSICIAN & INSTITUTION [place] [id number] SPECIMEN INFORMATION: Tissue Source: B ? Right vulvar biopsy Clinical Info: Vulvar atrophy and discomfort, urinary tract infections Specimen Number: [id number] CPT code: 29159, 76297 x3 METHODOLOGY: Deparaffinized sections of prefer/formalin-fixed tissue or PAP/DQ stained slides are incubated with monoclonal/polyclonal antibodies/oligonucleotide probes. Localization is made via biotin free immunoperoxidase method. Appropriate controls are performed and reacted as expected. Results on target cell population are indicated in the following table: RESULTS: ANTIBODY / CLONE RESULT Block B P16 (E6H4) positive, block-like Ki-67 (30-9) positive, moderate P40 (BC28) positive P53 (DO-7) negative These tests were developed and their performance characteristics determined by [facility]. They may not have been cleared or approved by the U.S. Food and Drug Administration. The FDA has determined that such clearance or approval is not necessary. The above immunohistochemical/dualISH markers are ordered and reviewed by the Pathologist. INTERPRETATION: B. 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 AM:annetta 10/24/2020 Case has been reviewed in consultation with Dr. Aguayo who concurs with the above diagnosis. IDC:CARLOS MANUEL
--- NOTE | 2020-10-21 08:45 | EKG12_ITS ---
Test Reason : PRE OP Blood Pressure : / mmHG Vent. Rate : 079 BPM Atrial Rate : 079 BPM P-R Int : 158 ms QRS Dur : 086 ms QT Int : 400 ms P-R-T Axes : 035 -02 005 degrees QTc Int : 458 ms Normal sinus rhythm Poor R wave progression Confirmed by RAUL BACA, JEFFERSON ([id number]), telegraph editor ROSALINA MASSEY ([id number]) on 10/27/2020 10:12:38 AM Referred By: Yessenia Gonzalez Confirmed By:JEFFERSON CARTER MD
[2020-10-21 08:57] LABS: Hematocrit 47.3 % (37-47); Hemoglobin 15.6 g/dL (12.0-15.0); Mean Corpuscular Hgb 28.7 pg (27.0-32.0); Mean Corpuscular Volume 87.1 fL (81-99); Mean Platelet Vol. 9.6 fl (6.2-12.0); Platelet Count 257 K/mm3 (150-450); RBC Distribution Width CV 13.7 % (11.6-14.6); Red Blood Count 5.43 M/mm3 (4.2-5.4); White Blood Count 8.8 K/mm3 (4.4-11.0)
[2020-10-21 09:10] LABS: Anion Gap 5 (5-15); BUN 27 mg/dL (7-18); BUN/Creat Ratio 29.2 RATIO (10-20); Calcium,Total 8.9 mg/dL (8.5-10.1); Chloride 105 mmol/L (98-107); Creatinine, Serum 0.92 mg/dL (0.55-1.02); EST Glomerular Filtration Rate 65 mL/min (>60); Est Glom Filt Rate - Afr Amer 78 mL/min (>60); Glucose 196 mg/dL (74-106); Potassium 5.2 mmol/L (3.5-5.1); Sodium Level 134 mmol/L (136-145)
[2020-10-21] MEDS: Lactated Ringers 1,000 ML 100 ML IV (09:17)
[2020-10-21 09:20] LABS: Hemoglobin A1c 6.9 % (3.8-5.6)
[2020-10-21 09:25] LABS: Bedside Glucose 208 mg/dL (70-110)
--- NOTE | 2020-10-21 10:05 | BLA_PTH ---
PATIENT: GEOFF FELIPE LOC: [facility] [place] U#:[id number] AGE/SX: 65/F ROOM: RE10/21/[address]: Dr. Yessenia Gonzalez MD : 1955 BED: DIS: 10/21/2020 SPEC #: [id number] RECD: 10/21/20 13:49 STATUS: CULLEN REGALADO #: [id number] RUDY: 10/21/20 10:[address]: Yessenia Gonzalez DEPT: SURGICAL PATHOLOGY RECD BY: Ana Norton ENTERED: 10/22/20 09:41 SP TYPE: BLADDER BX OTHR DR: Dr. Jeremi Garrison MD Tissues: A - Urinary bladder, NOS B - Vulva, NOS Procedures: Surgery Specimen Level IV HEADER OPERATION: Cysto, bladder biopsy, fulguration PRE-OP DIAGNOSIS: Vulvar atrophy, vulvar discomfort, urinary tract infections TISSUE SUBMITTED: A ? Biopsy of bladder trigone, B ? Right vulvar biopsy MICROSCOPIC DIAGNOSIS A. Urinary bladder, biopsy: Benign epithelial hyperplasia. Chronic follicular cystitis. See comment. B. Right vulva, biopsy: Vulvar intraepithelial neoplasia, LAURENT I-II. Chronic inflammation. See comment. AM:annetta 10/23/2020 COMMENT A. Detrusor muscle is not represented in the biopsy. Clinical correlation is suggested. B. Immunohistochemistry ([id number]) supports the above diagnosis. Case has been reviewed in consultation with Dr. Aguayo who concurs with the above diagnosis. IDC:SJ MICROSCOPIC DESCRIPTION Slides are reviewed. GROSS DESCRIPTION A - Received in fixative is one container labeled with the patient's name and designated biopsy of bladder trigone. The specimen consists of one irregular fragment of light kimbrough soft tissue that measures 0.2 x 0.1 x 0.1 cm. The specimen is totally submitted in one cassette. B - Received in fixative is one container labeled with the patient's name and designated right vulvar biopsy. The specimen consists of multiple irregular fragments of light kimbrough soft tissue that in aggregate measure 0.5 x 0.4 x 0.1 cm. The specimen is totally submitted in one cassette. / CARLOS MANUEL:annetta 10/22/20 TC:0 CPT: 14875 x2
--- NOTE | 2020-10-21 10:08 | PCM.OPRPT ---
Problems Associated Problem List Diagnoses (1) Rectocele: (2) Urge incontinence: (3) Post-menopause atrophic vaginitis: (4) Vulvar atrophy: (5) Vulvar discomfort: (6) Urinary tract infection: Report of Operation Date of Procedure: 10/21/20 Pre-Operative Diagnosis: Urinary tract infection, vulvar atrophy, vulvar discomfort, rectocele Post-Operative Diagnosis: Same Surgery/Procedure Performed:: Cystoscopy, Bladder biopsy, vulvar biopsy Surgeon: Yessenia Gonzalez Type of Anesthesia: MAC Specimen's removed: Vulvar biopsy, bladder biopsy Description of Procedure: The patient is a 65-year-old female with recurrent urinary tract infections, vulvar atrophy and vulvar pain. She presents for cystoscopy with bladder biopsy and vulvar biopsy under anesthesia. Informed consent is obtained. The patient was taken to the operating room and placed on the operating room table. Anesthesia monitored the head, neck, airway, IV access and vital signs throughout the case. Once anesthesia was appropriately administered the patient was placed into dorsal lithotomy position was prepped and draped in usual sterile fashion. The cystoscope was inserted through the urethra under direct visualization into the urinary bladder. 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 The ureteral orifices were located in the correct anatomic position along the area of the trigone. There were no areas of ulceration, erythema, mass or foreign body identified within the urinary bladder. At this time the area of leukoplakia was biopsied with the flexible biopsy forceps and the area was fulgurated for hemostatic control and tissue treatment. The bladder was then emptied and the cystoscope was removed. The patient tolerated this portion of the procedure. An area on the right vulva was selected for biopsy. This a wheal of lidocaine was injected submucosally and a full-thickness elliptical biopsy was performed and sent for evaluation. Three interrupted 4-0 chromic sutures were used for closure. Bacitracin was applied to the biopsy site. The patient was then awakened and taken to the recovery room in good condition. There were no complications during this procedure. Grafts/Implants Used: None Complications None Admit VTE Documentation VTE Present on Admission: Yes VTE Mechan Device Prophylaxis: SCD's VTE Pharm Prophylaxis ordered?: No Reason prophylaxis not ordered:: Treatment Not Indicated
--- NOTE | 2020-10-21 10:11 | PCM.DC ---
Discharge Instructions Diet Discharge Diet: No restrictions Activity Discharge Activity: Return to Normal Activity May resume sexual activity in: 2 weeks Dressing / Incision Call your doctor if your incision/area has: Continuous Slow Oozing, Sudden Increased Bleeding, Increased Pain/ Swelling, Increased Redness, Foul Smelling Discharge and Swelling at the incision site Call your doctor if you observe: Fever of 101 or Higher, Inability to urinate, Inability to have a bowel movement and Uncontrolled pain Suture Line Care: Avoid Pulling/Pushing Cleanse incision/area with: Soap & Water Follow Up Care Please Follow Up With: Yessenia Gonzalez MD When: 1 week Test Results: Test results from this visit will be discussed in further detail at your follow-up appointment, if applicable. Discharge Plan Admission Attending Provider: Yessenia Gonzalez Primary Care Provider: Jeremi Garrison Discharge Orders/Prescriptions Prescriptions: New oxycodone-acetaminophen [oxycodone-acetaminophen] 1 TABLET tablet 2 tab PO Q8H PRN PRN (Reason: Pain) 7 Days Qty: 10 RF: 0 cephalexin [cephalexin] 500 MG capsule 500 mg PO Q12 3 Days Qty: 6 RF: 0 phenazopyridine [Pyridium] 200 MG tablet 200 mg PO TID PRN PRN (Reason: Bladder Spasms) 7 Days Qty: 30 RF: 0 Continued cyclobenzaprine 10 mg tablet 10 mg PO QHS RF: 0 losartan 25 mg tablet 25 mg PO QDAY RF: 0 meloxicam 15 mg tablet 15 mg PO QDAY RF: 0 metformin 500 MG tablet 1,000 mg PO BIDCM RF: 0 metoprolol tartrate 100 MG tablet 100 mg PO DAILY RF: 0 simvastatin 40 MG tablet 40 mg PO QHS RF: 0 glimepiride 4 MG tablet 4 mg PO DAILY RF: 0 hydrochlorothiazide 12.5 MG capsule 12.5 mg PO DAILY RF: 0 amlodipine 10 MG tablet 10 mg PO DAILY RF: 0 oxybutynin chloride 10 mg tablet extended release 24hr 10 mg PO DAILY RF: 0 acetaminophen 500 mg Tablet 1,000 mg PO Q6H PRN (Reason: Pain) RF: 0 Novolin N NPH U-100 Insulin 100 unit/mL suspension 15 unit SUBCUT DAILY RF: 0 cranberry 400 mg Capsule 400 mg PO DAILY RF: 0 omega-3 fatty acids Capsule 1,250 mg PO DAILY RF: 0 melatonin 5 mg Tablet 5 mg PO QHS RF: 0 docusate sodium [DOK] 100 MG capsule 100 mg PO PRN PRN (Reason: Constipation) RF: 0 Probiotic 10 billion cell Capsule 10,000 mmu cells PO DAILY RF: 0 Referrals / Follow Up: Jeremi Garrison MD [Primary Care Provider] - Disposition Disposition (needs filled in before D/C Order can be placed): Home, Self Care
[2020-10-21] MEDS: Cefazolin 2 GM in 0.9% Normal Saline 100 ML IV (10:25)
[2020-10-21] MEDS: oxyCODONE 5 MG Tablet 10 MG PO (12:30)
[2020-10-21] MEDS: Acetaminophen 325 MG Tablet 650 MG PO (12:30)
== END 2020-10-21 13:19 | disposition home or self-care (01) ==
LOC: SDC 08:04 → AC 08:05
PROVIDERS: Anesthesiology; PCP Family Medicine; Referring Provider Urology; Visit Provider Urology
PROC: 0TBB8ZX Excision of Bladder, Via Natural or Artificial Opening Endoscopic, Diagnostic (ICD-10-PCS; CPT 52204; principal; 2020-10-21 09:55)
DX: N81.6 Rectocele (principal); N39.0 Urinary tract infection, site not specified; N95.2 Postmenopausal atrophic vaginitis; N39.41 Urge incontinence; G47.30 Sleep apnea, unspecified; E11.9 Type 2 diabetes mellitus without complications; I10 Essential (primary) hypertension; N76.0 Acute vaginitis; R10.2 Pelvic and perineal pain
CPT/HCPCS: 52204; 56605; 80048; 82962; 83036; 85027; 88305; 88341; 88342; 93005; J7120; J2405

== ENCOUNTER → 2022-01-15 | Outpatient (CLI) | payer MEDICARE, SELFPAY ==
--- NOTE | 2022-01-15 | CYSPIN_PTH ---
PATIENT: GEOFF FELIPE LOC: [facility] U#:[id number] AGE/SX: 66/F ROOM: RE01/15/[address]: Dr. Yessenia Gonzalez MD : 1955 BED: DIS: 01/15/2022 SPEC #: [id number] RECD: 01/18/22 07:22 STATUS: CULLEN RERoddy #: [id number] RUDY: 01/15/22 00:[address]: Yessenia Gonzalez DEPT: CYTOLOGY RECD BY: Vinh Baker ENTERED: 01/18/22 07:22 SP TYPE: CYSPIN FL OTHR DR: Dr. 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 See comment. AM:annetta 01/18/2022 COMMENT The Nerissa System for urine cytology diagnostic categorization was used in the evaluation of this case. CYTOLOGY STUDY Slides are reviewed. CYTOLOGY GROSS Received is 40 ml of cloudy yellow-orange fluid labeled with the patient's name and and designated per the requisition as urine. Submitted for cytology preparation. / annetta 01/18/2022 TC:? CPT: 11755
[2022-01-15 17:32] LABS: Cytology, Body Fluid / CSF SEE PATHOLOGY REPORT
== END | disposition home or self-care (01) ==
PROVIDERS: PCP Family Medicine; Visit Provider Urology
DX: R31.0 Gross hematuria (principal)
CPT/HCPCS: 88108; 88313

== ENCOUNTER → 2022-06-15 | Outpatient (CLI) | payer BC, SELFPAY | END | disposition home or self-care (01) | LOC: SL 19:48 | PROVIDERS: PCP Family Medicine; Referring Provider Psychiatry & Neurology Sleep Medicine; Visit Provider Psychiatry & Neurology Sleep Medicine | DX: G47.33 Obstructive sleep apnea (adult) (pediatric) (principal); E66.01 Morbid (severe) obesity due to excess calories; Z68.41 Body mass index [BMI] 40.0-44.9, adult | CPT/HCPCS: 95811 ==

== ENCOUNTER → 2022-07-26 | Outpatient (CLI) | payer BC, SELFPAY | END | disposition home or self-care (01) | LOC: SL 15:54 | PROVIDERS: PCP Family Medicine; Visit Provider Psychiatry & Neurology Sleep Medicine | DX: G47.33 Obstructive sleep apnea (adult) (pediatric) (principal); Z99.81 Dependence on supplemental oxygen ==

== ENCOUNTER → 2023-02-03 | Outpatient (CLI) | payer BC, SELFPAY ==
[2023-02-03 11:40] LABS: Microalbumin,Random Urine 50.8 mg/L (NO RANGE EST.); Microalbumin:Creatinine Ratio 29.5 mg/g CRE (<30 mg/g CRE)
== END | disposition home or self-care (01) ==
PROVIDERS: PCP Family Medicine; Visit Provider Internal Medicine Nephrology
DX: E11.29 Type 2 diabetes mellitus with other diabetic kidney complication (principal)
CPT/HCPCS: 82043; 82570

== ENCOUNTER → 2024-07-04 | Outpatient (CLI) | payer MEDICARE, SELFPAY ==
--- NOTE | 2024-07-04 12:50 | NEURO ---
NCS and/or EMG Patient Report Ordering Doctor: Jeremi Garrison DATE OF SERVICE: 07/04/24 Fifi presents with complaints of numbness in digits 2 through 4 of the right hand. Electrodiagnostic findings: Right median motor nerve demonstrates prolonged distal latency with normal amplitude and reduced conduction velocity. Right ulnar motor nerve demonstrates normal distal latency, amplitude and conduction velocity. No significant drop in conduction across the elbow. Absent right median sensory latency at the wrist and palm. Needle EMG testing was performed the right upper limb. All muscles tested showed no evidence of denervation normal motor unit action potentials. Electrodiagnostic impression: This is an abnormal study in the right upper limb 1. Electrodiagnostic findings suggestive of right-sided median mononeuropathy. This consistent with a moderate right carpal tunnel syndrome. 2. No electrodiagnostic evidence for ulnar neuropathy, including cubital tunnel syndrome 3. No electrodiagnostic evidence for cervical radiculopathy. Multi Select Codes Neurology Neurology Interp Codes: 39446-24 Musc test done w/n test comp (interp) and 65392-20 Nrv cndj tst 5-6 studies (interp)
== END | disposition home or self-care (01) ==
PROVIDERS: PCP Family Medicine; Referring Provider Family Medicine; Visit Provider Family Medicine
DX: R20.0 Anesthesia of skin (principal); R20.2 Paresthesia of skin
CPT/HCPCS: 95886; 95909